=== PATIENT | female | born 1980 | race American Indian/Alaskan Native ===

== ENCOUNTER 2020-01-21 15:38 | Emergency (ER) | payer OTHER ==
[~2020-01-21] VITALS: Ht 167.6 cm; Wt 68.0 kg
[~2020-01-21 15:38] MED LIST: BACPOLTO30 TOP; CIPR500 PO; CRUTCH4 UD; HYDACE5325 PO; OXYACE5T PO; PENVK500 PO; Percocet 5-3251 EACH PO
[2020-01-21 16:12] LABS: BASOPHILS ABSOLUTE AUTO 0.04 K/mm3 (0.00-0.23); BASOPHILS PERCENT AUTO 0 % (0-2); EOSINOPHILS ABSOLUTE AUTO 0.14 K/mm3 (0.00-0.68); EOSINOPHILS PERCENT AUTO 1 % (0-6); Hematocrit 34.6 % (33.0-51.0); Hemoglobin 11.8 g/dL (11.5-16.0); IMMATURE GRAN ABSOLUTE AUTO 0.02 K/mm3 (0.00-0.10); IMMATURE GRAN PERCENT AUTO 0 % (0-1); LYMPHOCYTES PERCENT AUTO 38 % (21-46); MONOCYTES ABSOLUTE AUTO 0.53 K/mm3 (0.16-1.47); MONOCYTES PERCENT AUTO 5 % (4-13); Mean Corpuscular HGB 29.4 pg (26.0-34.0); Mean Corpuscular HGB Conc 34.1 g/dL (31.5-36.5); Mean Corpuscular Volume 86 fL (80-100); Mean Platelet Volume 9.6 fL (9.1-12.4); NEUTROPHILS ABSOLUTE AUTO 5.36 K/mm3 (1.96-9.15); NEUTROPHILS PERCENT AUTO 55 % (41-73); Platelet Count 297 K/mm3 (150-400); RDW Coefficient Variation 12.9 % (11.7-14.2); RDW Standard Deviation 40.6 fL (35.1-46.3); Red Blood Cell Count 4.01 M/mm3 (3.80-5.20); White Blood Cell Count 9.79 K/mm3 (4.00-11.30)
[2020-01-21 16:25] LABS: Source, Urine Catheter
[2020-01-21 16:31] LABS: Alanine Aminotransfer (ALT/SGP 22 U/L (12-78); Albumin, Blood 3.6 g/dL (3.4-5.0); Albumin/Globulin Ratio 1.1 (0.8-1.8); Alk Phos 58 U/L (50-136); Anion Gap 6 mmol/L (6-16); Aspartate Aminotrans (AST/SGOT 16 U/L (12-37); Bilirubin, Total 0.2 mg/dL (0.1-1.0); Blood Urea Nitrogen 16 mg/dL (8-24); Bun/Creatinine Ratio 20.3 (12.0-20.0); CO2, Blood 22 mmol/L (21-32); Calcium, Blood 8.3 mg/dL (8.5-10.1); Chloride, Blood 112 mmol/L (98-108); Creatinine, Blood 0.79 mg/dL (0.40-1.00); Globulin, Blood 3.3 g/dL (2.2-4.0); Glomerular Filtration Rate >60 (60-); Glucose, Blood 112 mg/dL (70-99); Potassium, Blood 3.4 mmol/L (3.5-5.5); Sodium, Blood 140 mmol/L (136-145); Total Protein, Blood 6.9 g/dL (6.4-8.2)
[2020-01-21 16:32] LABS: Ethanol (Alcohol), Blood, Med 450 mg/dL
[2020-01-21 16:36] LABS: Appearance, Urine Clear (Clear); Bilirubin, Urine Neg (Neg); Blood, Urine Neg (Neg); Color, Urine Yellow (P-Yellow); Glucose Qualitative, Urine Neg (Neg); Ketones, Urine Neg (Neg); Leukocyte Esterase, Urine Neg (Neg); Nitrite, Urine Neg (Neg); Protein, Urine Neg (Neg); Urobilinogen, Urine NORM (Normal); pH, Urine 6.5 (5.0-8.0)
[2020-01-21 16:51] LABS: U Amphetamine Screen DETECTED; U Barbituate Screen Not Detected; U Benzodiazapine Screen Not Detected; U Buprenorphine Screen Not Detected; U Cannabinoids Screen DETECTED; U Cocaine Screen Not Detected; U Methadone Screen Not Detected; U Methamphetamine Screen DETECTED; U Opiates Screen Not Detected; U Oxycodone Screen Not Detected; U Phencyclidine Screen Not Detected; U Propoxyphene Screen Not Detected
== END 2020-01-22 04:02 | disposition home or self-care (01) ==
LOC: ER 15:38
PROVIDERS: Emergency Medicine
DX: F10.129 Alcohol abuse with intoxication, unspecified (principal); F17.200 Nicotine dependence, unspecified, uncomplicated; Y90.8 Blood alcohol level of 240 mg/100 ml or more
CPT/HCPCS: 51701; 80053; 81003; 85025; 99285-25; G0480

== ENCOUNTER 2020-02-14 16:26 | Emergency (ER) | payer OTHER ==
[~2020-02-14] VITALS: Ht 167.6 cm; Wt 68.0 kg
[2020-02-14] MEDS ORDERED: MONDOXYNE NL100 MG PO (16:52)
== END 2020-02-14 17:09 | disposition home or self-care (01) ==
LOC: ER 16:26
DX: T81.41XA Infection following a procedure, superficial incisional surgical site, initial encounter (principal); L03.113 Cellulitis of right upper limb; Z88.2 Allergy status to sulfonamides; F17.200 Nicotine dependence, unspecified, uncomplicated
CPT/HCPCS: 99283; A9270-GY

== ENCOUNTER 2020-10-28 06:02 | Emergency (ER) | payer SELFPAY ==
[~2020-10-28 06:02] MED LIST changes: +MONDOXYNE NL100 MG PO
== END 2020-10-28 07:18 | disposition left against medical advice (07) ==
LOC: ER 06:02
DX: Z53.21 Procedure and treatment not carried out due to patient leaving prior to being seen by health care provider (principal)

== ENCOUNTER 2020-10-28 07:32 | Emergency (ER) | payer OTHER ==
[~2020-10-28] VITALS: Ht 162.6 cm; Wt 70.3 kg
== END 2020-10-28 09:44 | disposition home or self-care (01) ==
LOC: ER 07:32
DX: S51.812A Laceration without foreign body of left forearm, initial encounter (principal); S61.412A Laceration without foreign body of left hand, initial encounter; F17.200 Nicotine dependence, unspecified, uncomplicated; Z88.8 Allergy status to other drugs, medicaments and biological substances; W45.8XXA Other foreign body or object entering through skin, initial encounter
CPT/HCPCS: 99282-25

== ENCOUNTER 2021-01-31 21:05 | Emergency (ER) | payer OTHER ==
[~2021-01-31] VITALS: Ht 162.6 cm; Wt 65.8 kg
[2021-01-31] MEDS ORDERED: Vibramycin100 MG PO (21:31)
== END 2021-01-31 21:46 | disposition home or self-care (01) ==
LOC: ER 21:05
DX: Z20.2 Contact with and (suspected) exposure to infections with a predominantly sexual mode of transmission (principal); F17.200 Nicotine dependence, unspecified, uncomplicated; Z88.2 Allergy status to sulfonamides; Z88.8 Allergy status to other drugs, medicaments and biological substances
CPT/HCPCS: 96372; 99283-25; A9270; J0696

== ENCOUNTER 2021-04-21 18:56 | Emergency (ER) | payer OTHER ==
[~2021-04-21] VITALS: Ht 162.6 cm; Wt 65.8 kg
[~2021-04-21 18:56] MED LIST changes: +Vibramycin100 MG PO
[2021-04-23 07:08] LABS: HCV ANTIBODY <0.1 (0.0-0.9)
[2021-04-23 09:07] LABS: HIV SCREEN 4TH GENERATION WRFX Non Reactive (Non Reactive)
== END 2021-04-21 19:56 | disposition left against medical advice (07) ==
LOC: ER 18:56
PROVIDERS: Physician Assistant
DX: Z02.89 Encounter for other administrative examinations (principal); Z77.21 Contact with and (suspected) exposure to potentially hazardous body fluids; F17.200 Nicotine dependence, unspecified, uncomplicated; Z88.2 Allergy status to sulfonamides; Z88.8 Allergy status to other drugs, medicaments and biological substances
CPT/HCPCS: 36415; 84460; 86317; 86803; 87389; 99283

== ENCOUNTER → 2022-12-10 | Outpatient (CLI) | payer OTHER | LOC: LAB SHORT 10:48 → LAB 10:48 | DX: L03.116 Cellulitis of left lower limb (principal) | CPT/HCPCS: 87070; 87077; 87147; 87184; 87186; 87205 ==

== ENCOUNTER 2023-01-01 15:28 | Emergency (ER) | payer OTHER ==
[~2023-01-01] VITALS: Ht 162.6 cm; Wt 67.1 kg
[2023-01-01] MEDS ORDERED: Bactrim Ds Tab1 EACH PO (18:52)
== END 2023-01-01 19:12 | disposition home or self-care (01) ==
LOC: ER 15:28
DX: L03.116 Cellulitis of left lower limb (principal); B95.62 Methicillin resistant Staphylococcus aureus infection as the cause of diseases classified elsewhere; F17.200 Nicotine dependence, unspecified, uncomplicated; Z88.2 Allergy status to sulfonamides; Z88.8 Allergy status to other drugs, medicaments and biological substances
CPT/HCPCS: A9270

== ENCOUNTER 2023-04-30 20:25 | Inpatient (IN) | payer OTHER ==
[~2023-04-30] VITALS: Ht 167.6 cm; Wt 54.1 kg
[~2023-04-30 20:25] MED LIST changes: +Bactrim Ds Tab1 EACH PO
[2023-04-30 20:51] LABS: BASOPHILS ABSOLUTE AUTO 0.08 K/mm3 (0.00-0.23); BASOPHILS PERCENT AUTO 1 % (0-2); EOSINOPHILS ABSOLUTE AUTO 0.07 K/mm3 (0.00-0.68); EOSINOPHILS PERCENT AUTO 0 % (0-6); Hematocrit 36.1 % (33.0-51.0); Hemoglobin 12.1 g/dL (11.5-16.0); IMMATURE GRAN ABSOLUTE AUTO 0.04 K/mm3 (0.00-0.10); IMMATURE GRAN PERCENT AUTO 0 % (0-1); LYMPHOCYTES ABSOLUTE AUTO 2.06 K/mm3 (0.84-5.20); LYMPHOCYTES PERCENT AUTO 12 % (21-46); MONOCYTES ABSOLUTE AUTO 0.94 K/mm3 (0.16-1.47); MONOCYTES PERCENT AUTO 6 % (4-13); Mean Corpuscular HGB 28.1 pg (26.0-34.0); Mean Corpuscular HGB Conc 33.5 g/dL (31.5-36.5); Mean Corpuscular Volume 84 fL (80-100); Mean Platelet Volume 10.5 fL (9.1-12.4); NEUTROPHILS ABSOLUTE AUTO 13.42 K/mm3 (1.96-9.15); NEUTROPHILS PERCENT AUTO 81 % (41-73); Platelet Count 439 K/mm3 (150-400); RDW Coefficient Variation 13.8 % (11.7-14.2); RDW Standard Deviation 42.5 fL (35.1-46.3); White Blood Cell Count 16.61 K/mm3 (4.00-11.30)
[2023-04-30 21:02] LABS: Source, Urine Clean Catch
[2023-04-30 21:08] LABS: Appearance, Urine Clear (Clear); Blood, Urine 4+ (Neg); Color, Urine Yellow (P-Yellow); Glucose Qualitative, Urine Neg (Neg); Ketones, Urine 1+ (Neg); Leukocyte Esterase, Urine 1+ (Neg); Nitrite, Urine Neg (Neg); Protein, Urine 3+ (Neg); Specific Gravity, Urine 1.025 (1.003-1.022); Urobilinogen, Urine 1+ (Normal)
[2023-04-30 21:14] LABS: Bilirubin, Urine 1+ (Neg)
[2023-04-30 21:17] LABS: Bacteria Many /hpf; Hyaline Casts 0-2 /lpf (0-2); Renal Epithelial Rare /hpf (0-Rare); Squamous Epithelial Cells Mod /hpf (Few)
[2023-04-30 21:25] LABS: Ethanol (Alcohol), Blood, Med 5 mg/dL; Salicylate <1.7 mg/dL (2.8-20.0); Thyroxine (T4) 9.5 ug/dL (4.8-13.9)
[2023-04-30 21:54] LABS: Acetaminophen, Random <2.0 ug/mL (10.0-30.0); Alanine Aminotransfer (ALT/SGP 42 U/L (12-78); Albumin, Blood 4.7 g/dL (3.4-5.0); Alk Phos 84 U/L (50-136); Anion Gap 11 mmol/L (6-16); Aspartate Aminotrans (AST/SGOT 61 U/L (12-37); Blood Urea Nitrogen 58 mg/dL (8-24); Bun/Creatinine Ratio 12.1 (12.0-20.0); CO2, Blood 21 mmol/L (21-32); Calcium, Blood 9.4 mg/dL (8.5-10.1); Chloride, Blood 109 mmol/L (98-108); Globulin, Blood 4.5 g/dL (2.2-4.0); Glomerular Filtration Rate 11 (60-); Glucose, Blood 169 mg/dL (70-99); Potassium, Blood 4.7 mmol/L (3.5-5.5); Sodium, Blood 141 mmol/L (136-145); Total Protein, Blood 9.2 g/dL (6.4-8.2)
[2023-04-30 22:04] LABS: U Amphetamine Screen DETECTED; U Barbituate Screen Not Detected; U Benzodiazapine Screen Not Detected; U Buprenorphine Screen Not Detected; U Cannabinoids Screen DETECTED; U Cocaine Screen Not Detected; U Methadone Screen Not Detected; U Methamphetamine Screen DETECTED; U Opiates Screen Not Detected; U Oxycodone Screen Not Detected; U Phencyclidine Screen Not Detected; U Propoxyphene Screen Not Detected
[2023-04-30 22:30] LABS: Creatine Kinase MB 21.6 ng/mL (0.0-3.6)
[2023-04-30 23:00] LABS: CPK Creatine Kinase 1791 U/L (26-193); Creatine Kinase MB Index 1.2 (0.0-4.0)
[2023-05-01 01:32] VITALS: BP 121/80
[2023-05-01 05:37] VITALS: BP 109/61
[2023-05-01 05:57] LABS: BASOPHILS ABSOLUTE AUTO 0.06 K/mm3 (0.00-0.23); BASOPHILS PERCENT AUTO 1 % (0-2); EOSINOPHILS PERCENT AUTO 1 % (0-6); Hematocrit 31.6 % (33.0-51.0); Hemoglobin 10.7 g/dL (11.5-16.0); IMMATURE GRAN ABSOLUTE AUTO 0.04 K/mm3 (0.00-0.10); IMMATURE GRAN PERCENT AUTO 0 % (0-1); LYMPHOCYTES ABSOLUTE AUTO 2.81 K/mm3 (0.84-5.20); LYMPHOCYTES PERCENT AUTO 24 % (21-46); MONOCYTES PERCENT AUTO 8 % (4-13); Mean Corpuscular HGB 28.2 pg (26.0-34.0); Mean Corpuscular HGB Conc 33.9 g/dL (31.5-36.5); Mean Corpuscular Volume 83 fL (80-100); Mean Platelet Volume 10.2 fL (9.1-12.4); NEUTROPHILS PERCENT AUTO 67 % (41-73); Platelet Count 324 K/mm3 (150-400); RDW Standard Deviation 42.6 fL (35.1-46.3); White Blood Cell Count 11.81 K/mm3 (4.00-11.30)
[2023-05-01 06:30] LABS: Albumin, Blood 3.6 g/dL (3.4-5.0); Bilirubin, Total 0.9 mg/dL (0.1-1.0); Bun/Creatinine Ratio 18.9 (12.0-20.0); Calcium, Blood 8.7 mg/dL (8.5-10.1); Creatinine, Blood 2.28 mg/dL (0.40-1.00); Globulin, Blood 3.5 g/dL (2.2-4.0); Total Protein, Blood 7.1 g/dL (6.4-8.2)
--- NOTE | 2023-05-01 06:49 | NUR ---
RECIEVED PATIENT FROM THE ED. ALERT AND ORIENTED TO SELF WITH SITTER AT SIDE. PATIENT SLEPT FOR THE MOST PART, WITH LR INFUSING AT 250. PATIENTS SKIN IN DIRTY, HARD TO ASSESS INTEGRITY, SOME SCRATCHES, BRUISING, AND WHAT LOOKS LIKE ROAD RASH. THIS MORNING, PER MD REQUEST A NEW UA ORDER WAS PLACED. LATRICIA WAS ASSISTED TO THE BATHROOM WITH 2X ASSIST, WHERE SHE URINATED THEN WRESTLED FULL HAT OUT OF PRICING DIRECTOR'S HANDS, AND PLACED HANDS IN SAMPLE. NO UA WAS SENT OUT. RECOMEND AMBULATING WITH A 2X AND GAIT BELT NEXT TIME. PATIENT IS PULLING AT LINES, CONFUSED AND PARANOID. WILL CONT TO MONITOR.
[2023-05-01 07:27] VITALS: BP 107/67
--- NOTE | 2023-05-01 12:27 | NUR ---
AUNT, TEAGAN, IN WITH PT ALONG WITH [facility]. SPOKE WITH PT AND FAMILY ABOUT HOW AND WHY PT ARRIVED TO HOSPITAL. PT HAS REPORTED FEELING UNSAFE IN ROOM/HOSPITAL UNTIL FAMILY ARRIVED. DOESN'T ALWAYS COMPLETELY ANSWER QUESTIONS BUT FADES OFF AND STARES. FIDDLING WITH PHONE CORD AND IV TUBING EARLIER WHEN FLUIDS INFUSING. 1:1 SITTER AT BEDSIDE. DISCUSSED S.I. WITH MD AND THAT SHE HAS NO CURRENT RATING. AUNT REPORTS [facility] WORKING TO PROVIDE A PLACE FOR PT TO GO AFTER DISCHARGE. CURRENTLY PLAN FOR DISCHARGE TO [facility]. AUNTS, TEAGAN, PHONE NUMBER [phone]
[2023-05-01 16:45] VITALS: BP 115/52
--- NOTE | 2023-05-01 17:28 | NUR ---
SHIFT SUMMARY HAS BLURTED OUT WORDS IF SHE IS SEEING OR HEARING SOMETHING THAT ISN'T THERE BUT DOESN'T ANSWER IF ASKED IF SHE IS SEEING SOMETHING. REQUESTING SHOWER WHILE FAMILY AT BEDSIDE BUT WHEN SHOWER TIME AVAILABLE SHE DECIDED TO WAIT TIL AUNT TEAGAN RETURNED THIS EVENING. CURRENTLY DOZING WITH SITTER AT BEDSIDE. DR. HORN IN TO SEE PT AND REDUCED SUICIDE RISK TO LOW AND REMAINS ON A HOLD.
[2023-05-01 19:42] LABS: Source, Urine Voided
[2023-05-01 19:47] LABS: Bilirubin, Urine Neg (Neg); Blood, Urine 2+ (Neg); Color, Urine Yellow (P-Yellow); Glucose Qualitative, Urine Neg (Neg); Ketones, Urine Neg (Neg); Leukocyte Esterase, Urine Neg (Neg); Nitrite, Urine Neg (Neg); Protein, Urine 1+ (Neg); Specific Gravity, Urine 1.025 (1.003-1.022); Urobilinogen, Urine NORM (Normal)
[2023-05-01 20:02] LABS: Appearance, Urine Hazy (Clear)
[2023-05-01 20:04] LABS: Amorphous Mod (0-Heavy); Bacteria Many /hpf; Granular Casts 0-2 /lpf (0); Hyaline Casts 0-2 /lpf (0-2); Mucus Light (0-Heavy); Red Blood Cells, Urine 0-2 /hpf (0-2); Squamous Epithelial Cells Rare /hpf (Few)
[2023-05-02 02:19] VITALS: BP 107/65
--- NOTE | 2023-05-02 05:16 | NUR ---
PATIENT HAS REMAINED AWAKE FOR MOST OF THE NIGHT ORIENTED X3, NOT TO DATE AND TIME. VERY PLEASANT ALTHOUGH PARANOID AND SCARED AT TIMES. SITTER AT BEDSIDE. REFUSED HS MEDICATIONS. PIV INFUSING LR AT 250. UP WITH 1X ASSIST TO BATHROOM WITH GOOD UO. NO OTHER ISSUES TO REPORT.
[2023-05-02 05:49] LABS: BASOPHILS ABSOLUTE AUTO 0.03 K/mm3 (0.00-0.23); BASOPHILS PERCENT AUTO 0 % (0-2); EOSINOPHILS ABSOLUTE AUTO 0.15 K/mm3 (0.00-0.68); EOSINOPHILS PERCENT AUTO 2 % (0-6); Hematocrit 30.5 % (33.0-51.0); Hemoglobin 10.1 g/dL (11.5-16.0); IMMATURE GRAN ABSOLUTE AUTO 0.02 K/mm3 (0.00-0.10); IMMATURE GRAN PERCENT AUTO 0 % (0-1); LYMPHOCYTES PERCENT AUTO 19 % (21-46); MONOCYTES ABSOLUTE AUTO 0.55 K/mm3 (0.16-1.47); MONOCYTES PERCENT AUTO 6 % (4-13); Mean Corpuscular HGB 28.1 pg (26.0-34.0); Mean Corpuscular HGB Conc 33.1 g/dL (31.5-36.5); Mean Corpuscular Volume 85 fL (80-100); Mean Platelet Volume 10.4 fL (9.1-12.4); NEUTROPHILS ABSOLUTE AUTO 6.33 K/mm3 (1.96-9.15); NEUTROPHILS PERCENT AUTO 72 % (41-73); Platelet Count 306 K/mm3 (150-400); RDW Coefficient Variation 14.1 % (11.7-14.2); RDW Standard Deviation 43.4 fL (35.1-46.3); White Blood Cell Count 8.78 K/mm3 (4.00-11.30)
[2023-05-02 06:41] LABS: Bilirubin, Total 0.6 mg/dL (0.1-1.0); Bun/Creatinine Ratio 26.9 (12.0-20.0); Calcium, Blood 8.2 mg/dL (8.5-10.1); Creatinine, Blood 0.89 mg/dL (0.40-1.00); Globulin, Blood 2.9 g/dL (2.2-4.0); Potassium, Blood 3.9 mmol/L (3.5-5.5); Total Protein, Blood 5.9 g/dL (6.4-8.2)
[2023-05-02 08:00] VITALS: BP 108/92
[2023-05-02 16:14] VITALS: BP 120/74
--- NOTE | 2023-05-02 18:38 | NUR ---
SHIFT SUMMARY PT A&O X 4. VSS. NO ACUTE CHANGES THIS SHIFT. HAS 1:1 SITTER, IS ON 2 MD HOLD. PLAN IS FOR [facility] REH[facility] UPON DC. WAITING FOR BED AT [facility] IN [facility].
--- NOTE | 2023-05-02 19:22 | NUR ---
ORDER IN CHART TO DC SUICIDE PRECAUTION INTERVENTION. DISCUSSED WITH HAND SPRAYER TAWNY COLES. COMPLETED PROCESS INTERVENTION IN CHART.
[2023-05-02 20:50] VITALS: BP 107/62
[2023-05-03 02:37] VITALS: BP 124/80
--- NOTE | 2023-05-03 04:05 | NUR ---
SHIFT HAS BEEN MOSTLY UNREMARKABLE. PT IS COOPERATIVE WITH CARE BUT SEEMS VERY ANXIOUS. WAS VERY HESITANT TO TAKE 2100 SEROQUEL AND ULTIMATELY REFUSED MEDICATION. VOICED THAT SHE MAY DECIDE TO TAKE IT IN THE FUTURE BUT IS VERY APPREHENSIVE SHE IS NOT SURE HOW IT WILL AFFECT HER. NEURO CHECKS HAVE BEEN WNL THIS SHIFT. SOMEWHAT WEAK BUT STRENGTH IS INTACT BILATERALLY, SENSATION INTACT, PUPIL REACTION WNL. NO TREMORS. NO PAIN REPORTED THIS SHIFT. 1:[address] THROUGHOUT SHIFT[address] SUICIDE PRECAUTIONS/ASSESSMENT INTERVENTION AND ORDER DCd PER ORDER INPUT BY DR. HORN. BED IS LOCKED IN LOWEST POSITION. CALL LIGHT LEFT WITHIN REACH.
[2023-05-03 08:23] VITALS: BP 129/81
--- NOTE | 2023-05-03 09:00 | NUR ---
pt laying in bed with sitter in room, she is a/ox4, very high strung and anxious with many needs, lungs are a bit course t/o, resp even and unlabored, no cough noted at this time, hrr, no edema noted, ppp+2, cap refill <3sec, vs stable, afebrile, piv site is clear and patent, to lfa, btx4, abd flat soft nontender, voids without diff, skin has some red bumps on her bottom that she thinks may be mrsa and needs iv abx, she was started on oral, maew, up indep, dorothea, call light in reach.
[2023-05-03 16:01] VITALS: BP 137/92
--- NOTE | 2023-05-03 18:32 | NUR ---
pt has had a sitter all day, she showered this am, up ad rancho in room, sleeping at times, sheron light in reach.
[2023-05-03 21:18] VITALS: BP 123/74
[2023-05-04 04:05] VITALS: BP 124/70
--- NOTE | 2023-05-04 05:55 | NUR ---
SHIFT SUMMARY NO ACUTE CHANGE TO PT STATUS. PT HAS BEEN HUNGRY TONIGHT, EATING SEVERAL SNACKS THROUGHOUT THE NIGHT. PT SLEEPING OFF AND ON. 1:1 SITTER AT BEDSIDE. PT PLEASANT AND COOPERATIVE WITH CARE.
[2023-05-04 07:39] VITALS: BP 124/70
[2023-05-04 15:24] VITALS: BP 133/79
--- NOTE | 2023-05-04 16:49 | NUR ---
SHIFT SUMMARY PT AOX4, INDEPEDENT IN THE ROOM. PT REMAINS ON A 2 MD HOLD AWAITING PLACEMENT. SHE C/O A MCKAY THIS SHIFT AND WAS MEDICATED PER THE EMAR. SHE IS ALSO FAIRLY HUNGARY, RECEIVING SNACKS T/O THE SHIFT. PT HAS BEEN SLEEPING OFF AN ON T/O THE SHIFT. PT HAS A 1:1 SITTER THAT HAS REMAINED IN THE ROOM THE ENTIRE SHIFT. CALL LIGHT WITHIN REACH, BED IN THE LOWEST POSITION. WILL REPORT TO ONCOMING NURSE.
[2023-05-05 03:55] VITALS: BP 132/70
[2023-05-05 05:01] LABS: BASOPHILS ABSOLUTE AUTO 0.04 K/mm3 (0.00-0.23); BASOPHILS PERCENT AUTO 0 % (0-2); EOSINOPHILS ABSOLUTE AUTO 0.22 K/mm3 (0.00-0.68); EOSINOPHILS PERCENT AUTO 2 % (0-6); Hematocrit 33.8 % (33.0-51.0); IMMATURE GRAN ABSOLUTE AUTO 0.05 K/mm3 (0.00-0.10); IMMATURE GRAN PERCENT AUTO 1 % (0-1); LYMPHOCYTES ABSOLUTE AUTO 3.01 K/mm3 (0.84-5.20); LYMPHOCYTES PERCENT AUTO 30 % (21-46); MONOCYTES ABSOLUTE AUTO 0.71 K/mm3 (0.16-1.47); MONOCYTES PERCENT AUTO 7 % (4-13); Mean Corpuscular HGB 28.3 pg (26.0-34.0); Mean Corpuscular HGB Conc 32.5 g/dL (31.5-36.5); Mean Corpuscular Volume 87 fL (80-100); Mean Platelet Volume 11.1 fL (9.1-12.4); NEUTROPHILS PERCENT AUTO 60 % (41-73); Platelet Count 312 K/mm3 (150-400); RDW Coefficient Variation 13.8 % (11.7-14.2); RDW Standard Deviation 43.5 fL (35.1-46.3); Red Blood Cell Count 3.89 M/mm3 (3.80-5.20); White Blood Cell Count 10.13 K/mm3 (4.00-11.30)
--- NOTE | 2023-05-05 05:08 | NUR ---
SHIFT SUMMARY PT IS A&O4, IND WITH 1:1 SITTER AT BEDSIDE, PT VERY HUNGRY THIS SHIFT HAD ALOT OF SNACKS THROUGHOUT NIGHT, PRN PAIN MED GIVEN PER MAR FOR MLILD HEADACHE, PT COOPERATIVE WITH CARE, CONTINUE POC
[2023-05-05 05:21] LABS: Albumin, Blood 2.9 g/dL (3.4-5.0); Anion Gap 6 mmol/L (6-16); Blood Urea Nitrogen 21 mg/dL (8-24); Bun/Creatinine Ratio 25.6 (12.0-20.0); CO2, Blood 28 mmol/L (21-32); Calcium, Blood 8.6 mg/dL (8.5-10.1); Chloride, Blood 108 mmol/L (98-108); Creatinine, Blood 0.82 mg/dL (0.40-1.00); Glomerular Filtration Rate 92 (60-); Glucose, Blood 76 mg/dL (70-99); Magnesium, Blood 1.7 mg/dL (1.6-2.4); Phosphorus, Blood 2.3 mg/dL (2.5-4.9); Potassium, Blood 3.6 mmol/L (3.5-5.5); Sodium, Blood 142 mmol/L (136-145)
[2023-05-05 07:27] VITALS: BP 120/65
--- NOTE | 2023-05-05 10:39 | NUR ---
NODULES ON BUTTOCKS: PATIENT REPORTED NODULES ON BUTTOCKS. THERE ARE TWO APPARENT ONES, ONE ON EACH CHEEK. WHEN PALPATED, THERE IS A FIRM NODULE. SURROUNDING SKIN IS RED AND TENDER. THERE IS A SMALL SCAB AT THE CENTER OF EACH NODULE. THERE ARE OTHER SMALL SKIN MARKINGS AND SCABS IN THIS REGION. PATIENT REPORTS SHE HAS NEEDED THESE TO BE INCISED, DRAINED AND PACKED BEFORE. NOTIFIED DR. RÍOS.
[2023-05-05 12:17] LABS: Source, Urine Clean Catch
[2023-05-05 12:26] LABS: Appearance, Urine Clear (Clear); Bilirubin, Urine Neg (Neg); Blood, Urine Neg (Neg); Glucose Qualitative, Urine Neg (Neg); Ketones, Urine Neg (Neg); Leukocyte Esterase, Urine Neg (Neg); Nitrite, Urine Neg (Neg); Protein, Urine Neg (Neg); Urobilinogen, Urine NORM (Normal)
[2023-05-05 12:28] LABS: Color, Urine Pale Yellow (P-Yellow)
[2023-05-05 15:20] VITALS: BP 133/75
--- NOTE | 2023-05-05 17:47 | NUR ---
DISCHARGE SUMMARY: PATIENT ALERT AND ORIENTED X4 THROUGHOUT THE SHIFT. PATIENT EXPRESSED TO RN THAT SHE IS READY TO BE SOBER AGAIN. THROUGHOUT THE DAY, PATIENT MADE PHONE CALLS TO [facility], [facility], AND HER DINKEY ENGINEER TO ENSURE THAT SHE IS READY FOR DISCHARGE. PATIENT INDEPENDENT IN THE ROOM. PATIENT REPORTS THAT SHE IS MISSING HER FOOD STAMPS CARD. UNABLE TO LOCATE IT AMONG PATIENT'S BELONGINGS, CHART LOCKER, MEDICATION DRAWER AND THE ED. SHE IS TAKING THE STEPS NECESSARY TO GET THIS REPLACED. PATIENT REPORTED THAT A FIXED INTEREST DEALER FROM [facility], CHRISTINA, WILL BE TRANSPORTING HER TO [place] TOMORROW FOR [facility]. SHE REPORTED THAT HE WILL BE HERE AT [address]. NOTIF[address] RUBY. PATIENT REPORTED THAT SHE WILL ALSO CALL IN THE MORNING TO SEE IF HE CAN ARRIVE LATER IN THE MORNING.
[2023-05-06] VITALS (16 sets, daily range): BP systolic 97–136; BP diastolic 56–83
[2023-05-06 05:08] LABS: BASOPHILS ABSOLUTE AUTO 0.06 K/mm3 (0.00-0.23); BASOPHILS PERCENT AUTO 1 % (0-2); EOSINOPHILS ABSOLUTE AUTO 0.26 K/mm3 (0.00-0.68); EOSINOPHILS PERCENT AUTO 3 % (0-6); Hematocrit 34.3 % (33.0-51.0); Hemoglobin 11.5 g/dL (11.5-16.0); IMMATURE GRAN ABSOLUTE AUTO 0.08 K/mm3 (0.00-0.10); IMMATURE GRAN PERCENT AUTO 1 % (0-1); LYMPHOCYTES ABSOLUTE AUTO 3.06 K/mm3 (0.84-5.20); LYMPHOCYTES PERCENT AUTO 34 % (21-46); MONOCYTES ABSOLUTE AUTO 0.53 K/mm3 (0.16-1.47); MONOCYTES PERCENT AUTO 6 % (4-13); Mean Corpuscular HGB 28.8 pg (26.0-34.0); Mean Corpuscular HGB Conc 33.5 g/dL (31.5-36.5); Mean Corpuscular Volume 86 fL (80-100); Mean Platelet Volume 10.9 fL (9.1-12.4); NEUTROPHILS ABSOLUTE AUTO 5.13 K/mm3 (1.96-9.15); NEUTROPHILS PERCENT AUTO 56 % (41-73); Platelet Count 330 K/mm3 (150-400); RDW Coefficient Variation 13.7 % (11.7-14.2); RDW Standard Deviation 43.2 fL (35.1-46.3); Red Blood Cell Count 3.99 M/mm3 (3.80-5.20); White Blood Cell Count 9.12 K/mm3 (4.00-11.30)
[2023-05-06 05:26] LABS: Anion Gap 7 mmol/L (6-16); Blood Urea Nitrogen 24 mg/dL (8-24); Bun/Creatinine Ratio 28.4 (12.0-20.0); CO2, Blood 28 mmol/L (21-32); Calcium, Blood 8.4 mg/dL (8.5-10.1); Chloride, Blood 109 mmol/L (98-108); Creatinine, Blood 0.84 mg/dL (0.40-1.00); Glomerular Filtration Rate 89 (60-); Glucose, Blood 105 mg/dL (70-99); Phosphorus, Blood 3.5 mg/dL (2.5-4.9); Potassium, Blood 4.2 mmol/L (3.5-5.5); Sodium, Blood 144 mmol/L (136-145)
--- NOTE | 2023-05-06 11:03 | NUR ---
THE PATIENT WAS BROUGHT TO DAY SURGERY FOR HER PROCEDURE.
--- NOTE | 2023-05-06 16:24 | NUR ---
SHIFT SUMMARY PT AxOx4. PLEASANT AND COOPERATIVE WITH CARE. PT HAD I&D TODAY TO [facility]. PT BACK FROM SURGERY AT APPROX 1300. PER COUNSELLING PSYCHOLOGISTBARRY, SURGERY WAS UNCOMPLICATED. PT MEDICATED FOR PAIN x2. PT IS CURRENTLY RESTING IN BED. POST OP VITALS WNL. CALL LIGHT IN REACH. PT DENIES ANY NEEDS AT THIS TIME. CURRENT PLAN IS FOR PATIENT TO DC TOMORROW TO REHAB FACILITY.
[2023-05-07 03:40] VITALS: BP 121/68
--- NOTE | 2023-05-07 05:09 | NUR ---
SHIFT SUMMARY 42 YR F ADMITTED ON 05/01/23 FOR METHAMPHETAMINE INDUCED PSYCHOTIC DISORDER. FULL CODE. NO ACUTE CHANGES THIS SHIFT. PT IS A&O X 4 AND STATES SHE IS READY TO GO TO REHAB. SHE ASKED FOR FOOD SEVERAL TIMES AND STATED THAT SHE HAS BEEN EATING ALOT MORE LATELY. SHE C/O MILD PAIN AT THE [facility] I&D SITES. SHE IS VERY PLEASANT AND COOPERATIVE WITH CARE.
[2023-05-07 06:00] LABS: BASOPHILS ABSOLUTE AUTO 0.04 K/mm3 (0.00-0.23); BASOPHILS PERCENT AUTO 0 % (0-2); EOSINOPHILS ABSOLUTE AUTO 0.01 K/mm3 (0.00-0.68); EOSINOPHILS PERCENT AUTO 0 % (0-6); Hematocrit 33.7 % (33.0-51.0); IMMATURE GRAN PERCENT AUTO 1 % (0-1); LYMPHOCYTES ABSOLUTE AUTO 2.15 K/mm3 (0.84-5.20); LYMPHOCYTES PERCENT AUTO 16 % (21-46); MONOCYTES ABSOLUTE AUTO 0.59 K/mm3 (0.16-1.47); MONOCYTES PERCENT AUTO 4 % (4-13); Mean Corpuscular HGB 28.4 pg (26.0-34.0); Mean Corpuscular HGB Conc 32.6 g/dL (31.5-36.5); Mean Corpuscular Volume 87 fL (80-100); Mean Platelet Volume 10.6 fL (9.1-12.4); NEUTROPHILS ABSOLUTE AUTO 10.85 K/mm3 (1.96-9.15); NEUTROPHILS PERCENT AUTO 78 % (41-73); Platelet Count 354 K/mm3 (150-400); RDW Coefficient Variation 13.9 % (11.7-14.2); Red Blood Cell Count 3.88 M/mm3 (3.80-5.20); White Blood Cell Count 13.84 K/mm3 (4.00-11.30)
[2023-05-07 06:24] LABS: Albumin/Globulin Ratio 0.8 (0.8-1.8); Bilirubin, Total 0.2 mg/dL (0.1-1.0); Bun/Creatinine Ratio 29.9 (12.0-20.0); Calcium, Blood 8.8 mg/dL (8.5-10.1); Creatinine, Blood 0.84 mg/dL (0.40-1.00); Globulin, Blood 3.7 g/dL (2.2-4.0); Magnesium, Blood 1.9 mg/dL (1.6-2.4); Phosphorus, Blood 2.2 mg/dL (2.5-4.9); Potassium, Blood 4.1 mmol/L (3.5-5.5); Total Protein, Blood 6.7 g/dL (6.4-8.2)
[2023-05-07 07:33] VITALS: BP 125/66
[2023-05-07] MEDS ORDERED: DOXYCYCLINE HY100 M1 PO (10:38)
[2023-05-07] MEDS ORDERED: Seroquel Xr50 MG PO (10:39)
[2023-05-07] MEDS ORDERED: NICO21TP TOP (10:39)
[2023-05-07] MEDS ORDERED: VISBIOME 112.51 EACH PO (10:39)
--- NOTE | 2023-05-07 11:18 | NUR ---
DISCHARGE PT DISCHARGED TO THE CARE OF [facility] COUNSELORCHRISTINA TO CONTINUE TO TREATMENT AT REHAB. PT IV REMOVED & INTACT. CIGARRETES GIVEN BACK TO THE PT. WOUNDS TO BUTTOCKS REDRESSED WITH MEPILEX FOAM DRESSINGS. NO ACUTE CHANGES IN ASSESSMENT PRIOR TO DC.
== END 2023-05-07 11:32 | disposition home or self-care (01) | DRG 683 ==
LOC: ER 20:25 → MEDS 20:26 → ER 20:26 → MEDS 05-01 01:20 → ENPENDDIS 05-02 11:09 → MEDS 05-07 11:32
PROVIDERS: Emergency Medicine; Family Medicine; Surgery; ADMIT Student in an Organized Health Care Education/Training Program
PROC: 0H98XZZ Drainage of Buttock Skin, External Approach (ICD-10-PCS; principal; 2023-05-06 11:00)
DX: N17.9 Acute kidney failure, unspecified (principal); F23 Brief psychotic disorder; L02.31 Cutaneous abscess of buttock; M62.82 Rhabdomyolysis; L02.511 Cutaneous abscess of right hand; L03.011 Cellulitis of right finger; R35.0 Frequency of micturition; B95.62 Methicillin resistant Staphylococcus aureus infection as the cause of diseases classified elsewhere; E86.0 Dehydration; D72.828 Other elevated white blood cell count; E87.8 Other disorders of electrolyte and fluid balance, not elsewhere classified; R91.8 Other nonspecific abnormal finding of lung field; F15.959 Other stimulant use, unspecified with stimulant-induced psychotic disorder, unspecified; F17.210 Nicotine dependence, cigarettes, uncomplicated; Z98.51 Tubal ligation status; Z88.2 Allergy status to sulfonamides; Z88.8 Allergy status to other drugs, medicaments and biological substances; Z91.040 Latex allergy status
CPT/HCPCS: 36415; 74177; 80053; 80069; 81001; 81003; 81025; 82550; 82553; 83735; 84100; 84436; 84443; 85025; 87070; 87077; 87086; 87147; 87186; 87205; 96360; 96361; 96372-59; 99285-25; A9270; G0378; G0480; J1100; J1650; J2250; J2405; J2704; J2795; J3010; J3475; J3486; J7030; J7120; Q9967

== ENCOUNTER 2024-01-06 14:50 | Emergency (ER) | payer OTHER ==
[~2024-01-06] VITALS: Ht 167.6 cm; Wt 77.1 kg
[~2024-01-06 14:50] MED LIST changes: +DOXYCYCLINE HY100 M1 PO; +NICO21TP TOP; +Seroquel Xr50 MG PO; +VISBIOME 112.51 EACH PO
[2024-01-06] MEDS ORDERED: ALPRAZOLAM0.5 M1 PO (15:08)
[2024-01-06] MEDS ORDERED: DiphenhydrAMINE HCl 50 MG Cap PO ONE (15:15)
[2024-01-06 15:45] VITALS: BP 113/70
== END 2024-01-06 15:48 | disposition home or self-care (01) ==
LOC: ER 14:50
DX: R42 Dizziness and giddiness (principal); T42.6X5A Adverse effect of other antiepileptic and sedative-hypnotic drugs, initial encounter; F41.9 Anxiety disorder, unspecified; F17.200 Nicotine dependence, unspecified, uncomplicated; Z88.2 Allergy status to sulfonamides; Z88.8 Allergy status to other drugs, medicaments and biological substances; Z91.040 Latex allergy status
CPT/HCPCS: 99283; A9270

== ENCOUNTER 2025-03-29 12:29 | Emergency (ER) | payer OTHER ==
[~2025-03-29] VITALS: Ht 162.6 cm; Wt 96.6 kg
[~2025-03-29 12:29] MED LIST changes: +ALPR.5 PO; +ALPRAZOLAM0.5 M1 PO
[2025-03-29 13:00] LABS: BASOPHILS ABSOLUTE AUTO 0.05 K/mm3 (0.00-0.23); BASOPHILS PERCENT AUTO 1 % (0-2); EOSINOPHILS PERCENT AUTO 1 % (0-6); Hematocrit 36.6 % (33.0-51.0); Hemoglobin 12.4 g/dL (11.5-16.0); IMMATURE GRAN ABSOLUTE AUTO 0.02 K/mm3 (0.00-0.10); IMMATURE GRAN PERCENT AUTO 0 % (0-1); LYMPHOCYTES ABSOLUTE AUTO 1.69 K/mm3 (0.84-5.20); LYMPHOCYTES PERCENT AUTO 21 % (21-46); MONOCYTES ABSOLUTE AUTO 0.38 K/mm3 (0.16-1.47); MONOCYTES PERCENT AUTO 5 % (4-13); Mean Corpuscular HGB 28.5 pg (26.0-34.0); Mean Corpuscular HGB Conc 33.9 g/dL (31.5-36.5); Mean Corpuscular Volume 84 fL (80-100); Mean Platelet Volume 10.4 fL (9.1-12.4); NEUTROPHILS PERCENT AUTO 73 % (41-73); Platelet Count 331 K/mm3 (150-400); RDW Coefficient Variation 13.4 % (11.7-14.2); RDW Standard Deviation 41.5 fL (35.1-46.3); Red Blood Cell Count 4.35 M/mm3 (3.80-5.20); White Blood Cell Count 8.14 K/mm3 (4.00-11.30)
[2025-03-29 13:28] LABS: Albumin, Blood 3.5 g/dL (3.4-5.0); Bilirubin, Total 0.3 mg/dL (0.1-1.0); Bun/Creatinine Ratio 13.9 (12.0-20.0); Calcium, Blood 8.9 mg/dL (8.5-10.1); Creatinine, Blood 0.79 mg/dL (0.40-1.00); Globulin, Blood 3.5 g/dL (2.2-4.0); Potassium, Blood 4.2 mmol/L (3.5-5.5)
[2025-03-29 16:30] VITALS: BP 103/74
[2025-03-29] MEDS ORDERED: Atropine/Scopalam/Hyoscam/PB 5 ML UDC PO ONE (16:45)
[2025-03-29] MEDS ORDERED: Mag Hydrox/AL Hydrox/Simeth 30 ML UDC PO ONE (16:45)
[2025-03-29] MEDS ORDERED: Lidocaine 2% Viscous Soln 15 ML UDC PO ONE (16:45)
== END 2025-03-29 17:16 | disposition home or self-care (01) ==
LOC: ER 12:29
PROVIDERS: Physician Assistant
DX: R07.9 Chest pain, unspecified (principal); J44.9 Chronic obstructive pulmonary disease, unspecified; F17.200 Nicotine dependence, unspecified, uncomplicated; E66.9 Obesity, unspecified; Z68.36 Body mass index [BMI] 36.0-36.9, adult; Z88.2 Allergy status to sulfonamides; Z91.040 Latex allergy status
CPT/HCPCS: 71046; 80053; 83690; 84484; 85025; 93005; 93010; 99285-25; A9270